=== PATIENT | female | born 1985 | race American Indian/Alaskan Native ===

== ENCOUNTER 2016-10-26 13:28 | Emergency (ER) | payer MEDICAID, OTHER ==
[2016-10-26 14:33] LABS: Basophils % (Auto) 0.5 % (0.0-1.8); Hematocrit 37.5 % (30.3-42.9); Hemoglobin 12.3 gm/dl (10.1-14.3); Mean Corpuscular HGB Conc 33 % (30-34); Mean Corpuscular Hemoglobin 32 pg (28-32); Mean Corpuscular Volume 96 fl (79-97); Platelet Count 166 K/mm3 (140-440); Red Blood Count 3.91 M/mm3 (3.65-5.03); Red Cell Distribution Width 12.9 % (13.2-15.2); White Blood Count 7.9 K/mm3 (4.5-11.0)
[2016-10-26 14:37] LABS: Bacteria,Urine 2+ /HPF (Negative); Bilirubin,Urine NEG (Negative); Blood,Urine MOD (Negative); Ketones,Urine NEG (Negative); Leukocyte Esterase,Urine LG (Negative); Mucus,Urine FEW /HPF; Nitrite,Urine NEG (Negative)
[2016-10-26 14:40] LABS: WBC,Urine > 182.0 /HPF (0.0-6.0)
[2016-10-26 16:53] LABS: Alanine Aminotransferase 8 units/L (7-56); Albumin/Globulin Ratio 1.3 %; Alkaline Phosphatase 58 units/L (35-129); Anion Gap 18 mmol/L; Blood Urea Nitrogen 7 mg/dL (7-17); Calcium 8.9 mg/dL (8.4-10.2); Carbon Dioxide 23 mmol/L (22-30); Chloride 100.9 mmol/L (98-107); Glucose 92 mg/dL (65-100); Lipase 14 units/L (13-60); Sodium 138 mmol/L (137-145); Total Protein 7.2 g/dL (6.3-8.2)
[2016-10-26] MEDS ORDERED: MACROBID PO ONE (21:03)
[2016-10-26] MEDS ORDERED: TORADOL IM ONE (21:03)
[2016-10-26] MEDS ORDERED: ZOFRAN ODT PO ONE (21:03)
--- NOTE | 2016-10-26 21:05 | Emergency Department Report ---
ED General Adult HPI - General Chief complaint: Abdominal Pain Stated complaint: CHEST PAIN/ABD PAIN/CHILLS/NAUSEA Time Seen by Provider: 10/26/16 20:52 Source: patient, RN notes reviewed, old records reviewed Mode of arrival: Ambulatory Limitations: No Limitations - History of Present Illness Initial comments: This is a 31-year-old female. I have previously evaluated her. Patient has a past medical history of possibly hypertension and anemia. She does not have a local primary care doctor. The patient reports a history of cholecystectomy. The patient presents today with multiple complaints. The patient's first complaint is abdominal and stomach pain. It is suprapubic and in the bilateral lower quadrants. It decreases when she goes to sleep. It increases with walking. She endorses urinary pressure and frequency and vaginal discharge. Patient reports one episode of yellow emesis. No fevers. No chills. The patient also complains of chest pain. The chest pain is central. It does not radiate to the back, arms or neck. There is no diaphoresis or shortness of breath. There is no leg pain. There is no leg swelling. There is no cough. There is no cocaine use. There is no recent aspirin use. Patient does not take control tablets. -: Gradual Location: chest (chest pain present for hours, since 7:00 in the morning.), abdomen (abdominal pain present since 7:00 in the morning) Quality: aching Consistency: constant Improves with: other (as per history of present illness) Worsens with: other (as per history of present illness) Associated Symptoms: chest pain, malaise - Related Data Home Medications Medication Instructions Recorded Confirmed Last Taken Labetalol [Normodyne TAB] 100 mg PO DAILY 08/05/15 08/05/15 08/05/15 Previous Rx's Medication Instructions Recorded Last Taken Type Vit W-Ca,Fe,FA(<1 mg) 1 each PO QDAY #30 tablet 07/11/15 08/05/15 Rx [ Vitamins] Misoprostol [Cytotec] 400 mcg PO Q4H #3 tablet 08/06/15 Unknown Rx Ibuprofen [Motrin] 600 mg PO Q8H PRN #30 tablet 10/26/16 Unknown Rx Nitrofurantoin [place]/M-Cryst 100 mg PO Q12HR #13 capsule 10/26/16 Unknown Rx [Macrobid CAP] Ondansetron [Zofran Odt] 4 mg PO QID PRN #20 tab.rapdis 10/26/16 Unknown Rx Allergies Allergy/AdvReac Type Severity Reaction Status Date / Time No Known Allergies Allergy Verified 12/12/13 17:56 ED Review of Systems ROS: Stated complaint: CHEST PAIN/ABD PAIN/CHILLS/NAUSEA Other details as noted in HPI Constitutional: denies: fever Eyes: denies: vision change ENT: denies: epistaxis Respiratory: see HPI. denies: shortness of breath Cardiovascular: chest pain Gastrointestinal: abdominal pain Genitourinary: discharge Musculoskeletal: denies: myalgia Skin: denies: lesions Neurological: denies: abnormal gait Psychiatric: as per HPI ED Past Medical Hx - Past Medical History Hx Hypertension: Yes Hx Heart Attack/AMI: No Hx Congestive Heart Failure: No Hx Diabetes: No Hx Deep Vein Thrombosis: No Hx Liver Disease: No Hx Renal Disease: No Hx Sickle Cell Disease: No Hx Seizures: No Hx Asthma: No Hx COPD: No Hx HIV: No - Surgical History Hx Pacemaker: No Hx Internal Defibrillator: No Hx Cholecystectomy: Yes - Social History Smoking Status: Never Smoker Substance Use Type: Alcohol, Marijuana, Other - Medications Home Medications: Home Medications Medication Instructions Recorded Confirmed Last Taken Type Vit W-Ca,Fe,FA(<1 mg) 1 each PO QDAY #30 tablet 07/11/15 08/05/1508/04 Rx [ Vitamins] Labetalol [Normodyne TAB] 100 mg PO DAILY 08/05/15 08/05/15 08/05/15 History Misoprostol [Cytotec] 400 mcg PO Q4H #3 tablet 08/06/15 Unknown Rx Ibuprofen [Motrin] 600 mg PO Q8H PRN #30 tablet 10/26/16 Unknown Rx Nitrofurantoin [place]/M-Cryst 100 mg PO Q12HR #13 capsule 10/26/16 Unknown Rx [Macrobid CAP] Ondansetron [Zofran Odt] 4 mg PO QID PRN #20 tab.rapdis 10/26/16 Unknown Rx ED Physical Exam - General Limitations: No Limitations General appearance: alert, in no apparent distress - Head Head exam: Present: atraumatic, normocephalic - Eye Eye exam: Present: normal appearance, EOMI. Absent: nystagmus - ENT ENT exam: Present: normal exam, normal orophraynx, mucous membranes moist, normal external ear exam - Neck Neck exam: Present: normal inspection, full ROM. Absent: tenderness, meningismus - Respiratory Respiratory exam: Present: normal lung sounds bilaterally, chest wall tenderness. Absent: respiratory distress, wheezes, rales, rhonchi, stridor, accessory muscle use, decreased breath sounds, prolonged expiratory - Cardiovascular Cardiovascular Exam: Present: regular rate, normal rhythm, normal heart sounds. Absent: bradycardia, tachycardia, irregular rhythm, systolic murmur, diastolic murmur, rubs, gallop - GI/Abdominal GI/Abdominal exam: Present: soft, normal bowel sounds. Absent: distended, tenderness, guarding, rebound, rigid, pulsatile mass - External exam: Present: normal external exam Speculum exam: Present: normal speculum exam. Absent: cervical discharge, vaginal bleeding, foreign body Bi-manual exam: Present: normal bi-manual exam, other (escorted by nurse Katie Mcadams during the gynecologic examination). Absent: cervical motion tendernes, adnexal tenderness, adnexal mass, uterine enlargement, uterine tenderness - Extremities Exam Extremities exam: Present: normal inspection, full ROM, normal capillary refill. Absent: tenderness, pedal edema, joint swelling, calf tenderness - Back Exam Back exam: Present: normal inspection, full ROM. Absent: tenderness, CVA tenderness (R), CVA tenderness (L), muscle spasm, paraspinal tenderness, vertebral tenderness - Neurological Exam Neurological exam: Present: alert, oriented X3, normal gait, other (Extraocular movements intact. Tongue midline. No facial droop. Facial sensation intact to light touch in the V1, V2, V3 distribution bilaterally. 5 and 5 strength in 4 extremities.. Sensation is intact to light touch in 4 extremities.). Absent : motor sensory deficit - Psychiatric Psychiatric exam: Present: normal affect, normal mood - Skin Skin exam: Present: warm, dry, intact, normal color. Absent: rash ED Course Vital Signs 10/26/16 10/26/16 10/26/16 13:45 22:45 23:00 Temperature 98.8 F Pulse Rate 89 98 H Respiratory 18 16 16 Rate Blood Pressure 148/108 Blood Pressure 163/91 [Left] O2 Sat by Pulse 100 Oximetry 10/26/16 23:15 Temperature Pulse Rate Respiratory 18 Rate Blood Pressure Blood Pressure [Left] O2 Sat by Pulse Oximetry ED Medical Decision Making - Lab Data Result diagrams: 10/26/16 14:08 10/26/16 14:08 Vital Signs 10/26/16 13:45 Temperature 98.8 F Pulse Rate 89 Respiratory 18 Rate Blood Pressure 148/108 Labs 10/26/16 10/26/16 10/26/16 14:04 14:08 14:08 WBC 7.9 RBC 3.91 Hgb 12.3 Hct 37.5 MCV 96 MCH 32 MCHC 33 RDW 12.9 L Plt Count 166 Lymph % (Auto) 4.5 L [place] % (Auto) 6.2 Eos % (Auto) 0.0 Baso % (Auto) 0.5 Lymph # 0.4 L [place] # 0.5 Eos # 0.0 Baso # 0.0 Seg Neutrophils % 88.8 H Seg Neutrophils # 7.1 Sodium 138 Potassium 4.0 Chloride 100.9 Carbon Dioxide 23 Anion Gap 18 BUN 7 Creatinine 0.7 Estimated GFR > 60 BUN/Creatinine Ratio 10.00 Glucose 92 Calcium 8.9 Total Bilirubin 0.70 AST 9 ALT 8 Alkaline Phosphatase 58 Troponin T < 0.010 Total Protein 7.2 Albumin 4.0 Albumin/Globulin Ratio 1.3 Lipase 14 Urine Color Yellow Urine Turbidity Clear Urine pH 6.0 Ur Specific [place] 1.015 Urine Protein 100 mg/dl Urine Glucose (UA) Neg Urine Ketones Neg Urine Blood Mod Urine Nitrite Neg Ur Reducing Substances Not Reportable Urine Bilirubin Neg Urine Ictotest Not Reportable Urine Urobilinogen 2.0 Ur Leukocyte Esterase Lg Urine WBC (Auto) > 182.0 H Urine RBC (Auto) 21.0 U Epithel Cells (Auto) 1.0 Urine Bacteria (Auto) 2+ Urine Mucus Few Urine HCG, Qual Negative 10/26/16 21:13 WBC RBC Hgb Hct MCV MCH MCHC RDW Plt Count Lymph % (Auto) [place] % (Auto) Eos % (Auto) Baso % (Auto) Lymph # [place] # Eos # Baso # Seg Neutrophils % Seg Neutrophils # Sodium Potassium Chloride Carbon Dioxide Anion Gap BUN Creatinine Estimated GFR BUN/Creatinine Ratio Glucose Calcium Total Bilirubin AST ALT Alkaline Phosphatase Troponin T < 0.010 Total Protein Albumin Albumin/Globulin Ratio Lipase Urine Color Urine Turbidity Urine pH Ur Specific [place] Urine Protein Urine Glucose (UA) Urine Ketones Urine Blood Urine Nitrite Ur Reducing Substances Urine Bilirubin Urine Ictotest Urine Urobilinogen Ur Leukocyte Esterase Urine WBC (Auto) Urine RBC (Auto) U Epithel Cells (Auto) Urine Bacteria (Auto) Urine Mucus Urine HCG, Qual - EKG Data -: EKG Interpreted by Me EKG shows normal: sinus rhythm, axis, intervals, QRS complexes - EKG Data Interpretation: unchanged when compared t 10/26/16 22:28 EKG #1 demonstrates normal sinus, 93 bpm, normal intervals, normal axis, nonspecific T-wave abnormality, not morphologically consistent with STEMI, appears unchanged when compared to prior EKG from further 2015. EKG #2 shows normal sinus, 78 bpm, normal intervals, normal axis, persistent T wave abnormality, not morphologically consistent with STEMI. - Radiology Data Radiology results: image reviewed interpreted by me: X-ray of the chest is negative for acute disease. - Medical Decision Making Differential diagnosis: Urinary tract infection, pelvic inflammatory disease, ovarian cyst, bronchitis, costochondritis, acute coronary syndrome, pneumonia Assessment and plan: 31-year-old female with 2 complaints. In terms of the patient's abdominal pain, she does endorse some obstructive urinary symptoms, and her urinalysis seems to corroborate urinary tract infection. Her abdominal exam is benign, with no rebound, guarding or peritoneal signs, and she also has a benign gynecologic examination. Given her urinalysis, urinary symptoms, benign abdominal examination, I don't believe the patient requires advanced imaging at this time, she will be treated empirically for urinary tract infection. In terms of the patient's chest pain, there are no pulmonary embolus or DVT risk factors, the patient is low risk by well's criteria, she is low risk by RASHI score, she is low risk by heart score, troponins are negative 2, EKG morphologically unchanged 2, and unchanged from prior EKG, and the patient is perc negative. the patient can follow up with outpatient primary care doctor or action finisher for her abnormal EKG. She was treated with pain medication, nausea medication, Macrobid, and felt improved, the patient will be discharged at this time with instructions to follow-up. Critical care attestation.: If time is entered above; I have spent that time in minutes in the direct care of this critically ill patient, excluding procedure time. ED Disposition Clinical Impression: Abdominal pain, Chest wall pain Disposition: DC-01 TO HOME OR SELFCARE Is pt being admited?: No Does the pt Need Aspirin: No Condition: Stable Instructions: Chest Pain (ED), Abdominal Pain (ED) Additional Instructions: Take the pain medication, nausea medication, antibiotics as directed. Cultures was sent today, results will be available in the next 3-5 days. Have a primary care doctor or brake tester contact the medical records department to obtain culture results. Follow up with either a primary care doctor or any of the listed agronomy specialist within the next week for your chest pain. Return to the ER right away with new pain, worsening pain, migration of pain, fevers or chills, intractable nausea or vomiting, confusion, change in mental status, inability to tolerate liquid feeds. Prescriptions: Ibuprofen [Motrin] 600 mg PO Q8H PRN #30 tablet PRN Reason: Pain Nitrofurantoin [place]/M-Cryst [Macrobid CAP] 100 mg PO Q12HR #13 capsule Ondansetron [Zofran Odt] 4 mg PO QID PRN #20 tab.rapdis PRN Reason: Nausea Referrals: PRIMARY CAREMD [Primary Care Provider] - 3-5 Days ANIL CHRISTENSEN MD [Staff Physician] - 3-5 Days GERTRUDE MCKNIGHT MD [Staff Physician] - 3-5 Days NATALIE HUTCHINS MD [Staff Physician] - 3-5 Days
[2016-10-26 23:01] VITALS: BP 163/91
--- NOTE | 2016-10-27 10:56 | XRay Report ---
CHEST TWO VIEWS: 10/26/16 13:28:00 CLINICAL: Chest pain. COMPARISON: None FINDINGS: Normal heart and pulmonary vasculature. The lungs are normally expanded and clear.The bones and soft tissues are unremarkable. IMPRESSION: Normal chest.
== END 2016-10-26 23:15 | disposition home or self-care (01) ==
LOC: ED 13:28
DX: R10.9 Unspecified abdominal pain (principal); R07.89 Other chest pain; R53.81 Other malaise; I10 Essential (primary) hypertension; F12.10 Cannabis abuse, uncomplicated; Z90.49 Acquired absence of other specified parts of digestive tract
CPT/HCPCS: 36415; 71020; 80053; 81001; 81025; 83690; 84484; 85025; 87076; 87086; 87186; 87210; 87591; 93005; 93010; 96372; 99284; J1885; Q0162

== ENCOUNTER 2017-02-27 19:32 | Emergency (ER) | payer OTHER ==
[2017-02-27 21:35] LABS: Bilirubin,Urine NEG (Negative); Blood,Urine SM (Negative); Ketones,Urine NEG (Negative); Leukocyte Esterase,Urine NEG (Negative); Mucus,Urine FEW /HPF; Nitrite,Urine NEG (Negative); Protein,Urine <15 mg/dL mg/dL (Negative); Urobilinogen,Urine < 2.0 mg/dL (<2.0)
[2017-02-28] MEDS ORDERED: BENADRYL PO ONE (02:05)
[2017-02-28] MEDS ORDERED: REGLAN PO ONE (02:05)
--- NOTE | 2017-02-28 02:20 | Emergency Department Report ---
ED Headache HPI - General Chief Complaint: Headache Stated Complaint: VOMINTING & HEADACHES Time Seen by Provider: 02/28/17 01:23 - History of Present Illness Initial Comments: Pt. is a 32 y.o female who presents to ED c/o constant, throbbing, non radiation 6/10 intensity type headache x 3 weekks but has gotten worse in the past 2 days. Pt. states pain located to frontal. Pt. admits pain sometimes relieved with resting, Pt. denies fever, chills, nausea, vomiting, trauma, vision impairment, Timing/Duration: constant Quality: moderate, constant, throbbing Head Injury Location: frontal Recent Head Trauma: no recent headache/trauma, frequent headaches Allergies/Adverse Reactions: Allergies No Known Allergies Allergy (Verified 12/12/13 17:56) Home Medications: Ambulatory Orders Vit Calc,Iron,Folic [ Vitamins] 1 each PO QDAY #30 tablet Labetalol [Normodyne TAB] 100 mg PO DAILY 08/05/15 Misoprostol [Cytotec] 400 mcg PO Q4H #3 tablet 08/06/15 Nitrofurantoin [place]/M-Cryst [Macrobid CAP] 100 mg PO Q12HR #13 capsule 10/26/16 Ondansetron [Zofran Odt] 4 mg PO QID PRN #20 tab.rapdis 10/26/16 Ibuprofen [Motrin 600 MG tab] 600 mg PO Q8H PRN #30 tablet 02/28/17 Lisinopril/Hydrochlorothiazide [Zestoretic 10-12.5 mg Tablet] 1 each PO DAILY # 30 tablet 02/28/17 Prochlorperazine [Compazine] 10 mg PO Q8HR #24 tablet 02/28/17 ED Review of Systems ROS: Stated complaint: VOMINTING & HEADACHES Other details as noted in HPI Constitutional: denies: chills, fever Eyes: denies: eye pain, eye discharge, vision change ENT: denies: ear pain, throat pain Respiratory: denies: cough, shortness of breath, wheezing Cardiovascular: denies: chest pain, palpitations Endocrine: no symptoms reported Gastrointestinal: denies: abdominal pain, nausea, diarrhea Genitourinary: denies: urgency, dysuria, frequency, hematuria, discharge Musculoskeletal: denies: back pain, joint swelling, arthralgia Skin: denies: rash, lesions Neurological: denies: headache, weakness, paresthesias Psychiatric: denies: anxiety, depression Hematological/Lymphatic: denies: easy bleeding, easy bruising ED Past Medical Hx - Past Medical History Previous Medical History?: No Hx Hypertension: Yes Hx Heart Attack/AMI: No Hx Congestive Heart Failure: No Hx Diabetes: No Hx Deep Vein Thrombosis: No Hx Liver Disease: No Hx Renal Disease: No Hx Sickle Cell Disease: No Hx Seizures: No Hx Asthma: No Hx COPD: No Hx HIV: No - Surgical History Past Surgical History?: Yes Hx Pacemaker: No Hx Internal Defibrillator: No Hx Cholecystectomy: Yes - Social History Smoking Status: Never Smoker Substance Use Type: None - Medications Home Medications: Home Medications Medication Instructions Recorded Confirmed Last Taken Type Vit Calc,Iron,Folic 1 each PO QDAY #30 tablet 07/11/15 08/05/15 Rx [ Vitamins] Labetalol [Normodyne TAB] 100 mg PO DAILY 08/05/15 08/05/15 08/05/15 History Misoprostol [Cytotec] 400 mcg PO Q4H #3 tablet 08/06/15 Unknown Rx Nitrofurantoin [place]/M-Cryst 100 mg PO Q12HR #13 capsule 10/26/16 Unknown Rx [Macrobid CAP] Ondansetron [Zofran Odt] 4 mg PO QID PRN #20 tab.rapdis 10/26/16 Unknown Rx Ibuprofen [Motrin 600 MG tab] 600 mg PO Q8H PRN #30 tablet 02/28/17 Unknown Rx Lisinopril/Hydrochlorothiazide 1 each PO DAILY #30 tablet 02/28/17 Unknown Rx [Zestoretic 10-12.5 mg Tablet] Prochlorperazine [Compazine] 10 mg PO Q8HR #24 tablet 02/28/17 Unknown Rx ED Physical Exam - General Limitations: No Limitations General appearance: alert, in no apparent distress - Head Head exam: Present: atraumatic, normocephalic - Eye Eye exam: Present: normal appearance, PERRL, EOMI - ENT ENT exam: Present: mucous membranes moist - Neck Neck exam: Present: normal inspection - Respiratory Respiratory exam: Present: normal lung sounds bilaterally. Absent: respiratory distress, wheezes, rales - Cardiovascular Cardiovascular Exam: Present: regular rate, normal rhythm. Absent: systolic murmur, diastolic murmur, rubs, gallop - GI/Abdominal GI/Abdominal exam: Present: soft, normal bowel sounds - Extremities Exam Extremities exam: Present: normal inspection - Back Exam Back exam: Present: normal inspection - Neurological Exam Neurological exam: Present: alert, oriented X3, CN II-XII intact, normal gait - Expanded Neurological Exam Expanded Patient oriented to: Present: person, place, time Speech: Present: fluid speech Cranial nerves: EOM's Intact: Normal, Facial Sensation: Normal Cerebellar function: Finger to Nose: Normal Sensory exam: Upper Extremity Light Touch: Normal, Lower Extremity Light Touch: Normal Motor strength exam: RUE: 5, LUE: 5, RLE: 5, LLE: 5 DTR: knee (R): 2+, knee (L): 2+ Best Eye Response ([place]): (4) open spontaneously Best Motor Response ([place]): (6) obeys commands Best Verbal Response ([place]): (5) oriented [place] Total: 15 - Psychiatric Psychiatric exam: Present: normal affect, normal mood - Skin Skin exam: Present: warm, dry, intact, normal color. Absent: rash ED Course Vital Signs 02/27/17 20:17 Temperature 97.8 F Pulse Rate 72 Blood Pressure 157/112 O2 Sat by Pulse 100 Oximetry Critical care attestation.: If time is entered above; I have spent that time in minutes in the direct care of this critically ill patient, excluding procedure time. ED Disposition Clinical Impression: Migraine headache Qualifiers: Status migrainosus presence: without status migrainosus Intractability: not intractable Disposition: DC-01 TO HOME OR SELFCARE Is pt being admited?: No Does the pt Need Aspirin: No Condition: Stable Instructions: Migraine Headache (ED), Tension Headache (ED), Acute Headache (ED ) Prescriptions: Ibuprofen [Motrin 600 MG tab] 600 mg PO Q8H PRN #30 tablet PRN Reason: Pain Lisinopril/Hydrochlorothiazide [Zestoretic 10-12.5 mg Tablet] 1 each PO DAILY # 30 tablet Prochlorperazine [Compazine] 10 mg PO Q8HR #24 tablet Referrals: PRIMARY CAREMD [Primary Care Provider] - 3-5 Days MARYANA HANSEN MD [Staff Physician] - 3-5 Days GUY SINHA MD [Referring] - 3-5 Days [facility] [Outside] - 3-5 Days [facility] [Outside] - 3-5 Days Forms: Accompanied Note, Work/School Release Form(ED) Time of Disposition: 02:42
[2017-02-28 03:40] VITALS: BP 146/104
== END 2017-02-28 02:55 | disposition home or self-care (01) ==
LOC: ED 19:32
DX: G43.909 Migraine, unspecified, not intractable, without status migrainosus (principal); I10 Essential (primary) hypertension
CPT/HCPCS: 81001; 81025; 99283

== ENCOUNTER 2017-09-06 11:55 | Emergency (ER) | payer MEDICAID, OTHER ==
[2017-09-06 12:14] VITALS: BP 173/130
[2017-09-06 12:44] LABS: Basophils % (Auto) 1.1 % (0.0-1.8); Eosinophils # (Auto) 0.1 K/mm3 (0.0-0.4); Eosinophils % (Auto) 2.3 % (0.0-4.3); Hematocrit 36.2 % (30.3-42.9); Hemoglobin 12.3 gm/dl (10.1-14.3); Lymphocytes # (Auto) 1.2 K/mm3 (1.2-5.4); Lymphocytes % (Auto) 28.8 % (13.4-35.0); Mean Corpuscular HGB Conc 34 % (30-34); Mean Corpuscular Hemoglobin 33 pg (28-32); Mean Corpuscular Volume 98 fl (79-97); Monocytes # (Auto) 0.3 K/mm3 (0.0-0.8); Monocytes % (Auto) 8.1 % (0.0-7.3); Platelet Count 210 K/mm3 (140-440); Red Blood Count 3.69 M/mm3 (3.65-5.03); Red Cell Distribution Width 13.2 % (13.2-15.2)
[2017-09-06 12:59] LABS: Alanine Aminotransferase 10 units/L (7-56); Albumin 4.1 g/dL (3.9-5); BUN/Creatinine Ratio 12; Blood Urea Nitrogen 7 mg/dL (7-17); Calcium 9.1 mg/dL (8.4-10.2); Hemolysis Index 6
--- NOTE | 2017-09-06 13:17 | Emergency Department Report ---
ED Female HPI - General Chief complaint: Abdominal Pain Stated complaint: CRAMPING/BLEEDING Time Seen by Provider: 09/06/17 13:16 Source: patient Mode of arrival: Ambulatory Limitations: No Limitations - History of Present Illness Initial comments: Pt states she may be pregnat, feels she may be having a miscarriage. Complaint: vaginal bleeding -: Gradual Radiation: non-radiating Severity: mild Quality: cramping Consistency: intermittent - Related Data Previous Rx's Medication Instructions Recorded Last Taken Type Lisinopril/Hydrochlorothiazide 1 each PO DAILY #30 tablet 09/06/17 Unknown Rx [Zestoretic 10-12.5 mg Tablet] Allergies Allergy/AdvReac Type Severity Reaction Status Date / Time No Known Allergies Allergy Verified 12/12/13 17:56 ED Review of Systems ROS: Stated complaint: CRAMPING/BLEEDING Other details as noted in HPI Constitutional: denies: chills, fever Eyes: denies: eye pain, eye discharge, vision change ENT: denies: ear pain, throat pain Respiratory: denies: cough, shortness of breath, wheezing Cardiovascular: denies: chest pain, palpitations Endocrine: no symptoms reported Gastrointestinal: denies: abdominal pain, nausea, diarrhea Genitourinary: abnormal menses. denies: urgency, dysuria, discharge Musculoskeletal: denies: back pain, joint swelling, arthralgia Skin: denies: rash, lesions Neurological: denies: headache, weakness, paresthesias Psychiatric: denies: anxiety, depression Hematological/Lymphatic: denies: easy bleeding, easy bruising ED Past Medical Hx - Past Medical History Hx Hypertension: Yes Hx Heart Attack/AMI: No Hx Congestive Heart Failure: No Hx Diabetes: No Hx Deep Vein Thrombosis: No Hx Liver Disease: No Hx Renal Disease: No Hx Sickle Cell Disease: No Hx Seizures: No Hx Asthma: No Hx COPD: No Hx HIV: No - Surgical History Hx Pacemaker: No Hx Internal Defibrillator: No Hx Cholecystectomy: Yes - Social History Smoking Status: Never Smoker Substance Use Type: Alcohol, Marijuana - Medications Home Medications: Home Medications Medication Instructions Recorded Confirmed Last Taken Type Lisinopril/Hydrochlorothiazide 1 each PO DAILY #30 tablet 09/06/17 Unknown Rx [Zestoretic 10-12.5 mg Tablet] ED Physical Exam - General Limitations: No Limitations General appearance: alert, in no apparent distress - Head Head exam: Present: atraumatic, normocephalic - Eye Eye exam: Present: normal appearance - ENT ENT exam: Present: normal orophraynx, mucous membranes moist - Neck Neck exam: Present: normal inspection - Respiratory Respiratory exam: Present: normal lung sounds bilaterally. Absent: respiratory distress - Cardiovascular Cardiovascular Exam: Present: regular rate, normal rhythm. Absent: systolic murmur, diastolic murmur, rubs, gallop - GI/Abdominal GI/Abdominal exam: Present: soft, normal bowel sounds - Extremities Exam Extremities exam: Present: normal inspection - Back Exam Back exam: Present: normal inspection - Neurological Exam Neurological exam: Present: alert, oriented X3 - Psychiatric Psychiatric exam: Present: normal affect, normal mood - Skin Skin exam: Present: warm, dry, intact, normal color. 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 ) - Medical Decision Making pt states she has a hx of htn, states she takes lisinorpil with hctz, . i will rx pt. pt aware of mass, will see circular knife machine cutter Critical Care Time: No Critical care attestation.: If time is entered above; I have spent that time in minutes in the direct care of this critically ill patient, excluding procedure time. ED Disposition Clinical Impression: Ovarian mass, right, HTN (hypertension), Vaginal bleeding Disposition: DC- TO HOME OR SELFCARE Is pt being admited?: No Does the pt Need Aspirin: No Condition: Stable Instructions: Abdominal Pain (ED), Hypertension (ED) Additional Instructions: Report to your applications development consultant, as soon as possible. Please discuss with your applications development consultant, that our radiologist has reported an 1.7cm Right ovarian mass. If you cant reach your applications development consultant on Saturday, call . Prescriptions: Lisinopril/Hydrochlorothiazide [Zestoretic 10-12.5 mg Tablet] 1 each PO DAILY # 30 tablet Referrals: PRIMARY CARE, [Primary Care Provider] - 3-5 Days JOSE AGUIRRE MD [Staff Physician] - 3-5 Days
--- NOTE | 2017-09-06 14:23 | Ultrasound Report ---
Pelvic and transvaginal sonography: History: Vaginal bleeding, pain. Findings: Uterus measures 11.2 x 5.8 x 5.6 cm. Anteverted uterus. Endometrial thickness is 18 mm. No mass within the endometrium. No fluid. Right ovary 2.6 x 1.9 x 2.9 cm. Mass in the right ovary is solid and measures 1.7 cm. Left ovary 2.7 x 1.6 x 3.9 cm. No mass. No free fluid in the cul-de-sac. Impression: Solid mass right ovary.
== END 2017-09-06 15:27 | disposition home or self-care (01) ==
LOC: ED 11:55
DX: N93.9 Abnormal uterine and vaginal bleeding, unspecified (principal); I10 Essential (primary) hypertension; Z90.49 Acquired absence of other specified parts of digestive tract
CPT/HCPCS: 36415; 76830; 76856; 80053; 84703; 85025